=== PATIENT | male | born 1995 | race Hispanic/Latino ===

== ENCOUNTER 2021-08-20 13:45 | Emergency (ER) | payer SELFPAY ==
[~2021-08-20] VITALS: Ht 165.1 cm; Wt 78.0 kg
[2021-08-20] MEDS ORDERED: TETANUS/DIPHTHERIA TOXOID [ADULT] 0.5 ML VIAL IM ONE (14:42)
[2021-08-20 16:32] VITALS: BP 129/78
== END 2021-08-20 16:33 | disposition home or self-care (01) ==
LOC: EDH 13:45
DX: S71.112A Laceration without foreign body, left thigh, initial encounter (principal); W26.8XXA Contact with other sharp object(s), not elsewhere classified, initial encounter; Y93.89 Activity, other specified; Y92.89 Other specified places as the place of occurrence of the external cause; Y99.8 Other external cause status
CPT/HCPCS: 12002; 90471; 90714

== ENCOUNTER 2021-09-05 14:05 | Emergency (ER) | payer SELFPAY ==
[~2021-09-05] VITALS: Ht 157.5 cm; Wt 78.5 kg
[2021-09-05 14:28] VITALS: BP 147/83
== END 2021-09-05 14:34 | disposition home or self-care (01) ==
LOC: EDH 14:05
DX: S81.812D Laceration without foreign body, left lower leg, subsequent encounter (principal); X58.XXXD Exposure to other specified factors, subsequent encounter
CPT/HCPCS: 99281